=== PATIENT | male | born 1940 | race Caucasian/White ===

== ENCOUNTER → 2023-01-16 10:48 | Outpatient (CLI) | payer MEDICARE, SELFPAY ==
--- NOTE | 2023-01-16 | DI.RAD.S_ITS ---
PROCEDURE: FL BARIUM SWALLOW W SPEECH INDICATIONS: Dysphagia, unspecified COMPARISON: None. TECHNIQUE: Examination was conducted in conjunction with speech pathology per standard protocol. In the lateral projection, filming was performed of the patient swallowing. AP projection filming may also be performed with patient swallowing. COMPARISON: FINDINGS: Function: The oral preparatory phase appears normal, with proper containment. No laryngotracheal penetration or aspiration Morphology: No cricopharyngeal bar is identified. No cervical esophageal webs. No Zenker's diverticulum. No strictures. IMPRESSION: No penetration or aspiration is visualized. Please see separately dictated speech and swallow report for additional details. Dictated by: Quita Garcia M.D. on 01/17/2023 at 8:56 Approved by: Quita Garcia M.D. on 01/17/2023 at 8:57
--- NOTE | 2023-01-16 12:49 | ST.SWALLOW ---
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 Pt was accompanied by his daughter who provided background information. According to his daughter, pt has been having difficulty swallowing solids, specifically meats, during meals. He has been reported to need to throw up undigested foods when he feels foods getting stuck. Pt has a PMH of esophageal dilation (date unknown) and memory challenges , per his daughter. Pt reports his swallow problem is due to him not chewing enough'. His daughter noted that the pt eats mostly a soft diet and had self-eliminated salads, foods with skin, etc. He has no difficulty swallowing meats like meatloaf . Subjective Observations Pt entered the fluoroscopy room and was seated in the fluoroscopy chair. He was a poor historian re: PMH. He did state that he has a hiatal hernia, which his daughter denies. Instructions and procedure were described for the pt. He indicated he understood and agreed to proceed. Patient Positioning Position View Lat-A/P Imaging Lateral View Textures Administered Trials Presented Thin Liquid via Spoon (IDDSI 0 ),Thin Liquid via Cup (IDDSI 0 ),Extremely Thick Liquid via Spoon (IDDSI 4),Regular (IDDSI 7) Barium Tablet Yes The IDDSI Framework Protocol: IDDSI.1 Oral Impairment Source: The Modified Barium Swallow Impairment Profile (MBSImP??) Lip Closure No labial escape Tongue Control During Bolus Hold Cohesive bolus between tongue to palatal seal Bolus Preparation/Mastication Timely & efficient chewing & mashing Bolus Transport/Lingual Motion Brisk tongue motion Oral Residue Trace residue lining oral structures Location Tongue Initiation of Pharyngeal Swallow Bolus head in valleculae Additional Oral Impairment Observations OME and DKS were observed to be WNL. Natural dentition in good hygeine was noted. Mastication was observed to be good with a rotary chew pattern. Bolus formation, control and AP transition observed to be WNL. Pharyngeal Impairment Source: The Modified Barium Swallow Impairment Profile (MBSImP??) Soft Palate Elevation No bolus between soft palate & pharyngeal wall Laryngeal Elevation Comp.sup.move.thyroid cart.w/ comp.approx.arytenoids to epiglot petiole Anterior Hyoid Excursion Partial anterior movement Epiglottic Movement Complete inversion Laryngeal Vestibular Closure Complete; no air/contrast in laryngeal vestibule Pharyngeal Stripping Wave Present - diminished Pharyngoesophageal Segment Opening Complete distention & complete duration; no obstruction of flow Tongue Base Retraction Narrow column of contrast/air betwn tongue base & post. pharyngeal wall Pharyngeal Residue Trace residue within/on pharyngeal structures Location Diffuse (>3 areas) Additional Pharyngeal Impairment Pt's pharyngeal phase of Observations swallow appeared to be WFL for pt's age. There was mild tongue base strength observed along with partial movement of the hyoid, and diminished posterior pharyngeal wall stripping. No laryngeal penetration or aspiration were noted. Trace residual was observed throughout the pharynx. A/P View Textures Administered Trials Presented Thin Liquid via Spoon (IDDSI 0 ) The IDDSI Framework Protocol: IDDSI.1 A/P View Observations Pharyngeal Contraction Complete Esophageal Clearance Upright Position Esophageal retention w/ regtrograde flow below pharyngoesoph segment Vocal Fold Function Good Esophageal Function Slowed Clearing Additional A-P Observations Esophageal phase of pt's swallowing was screened and observed to be WFL. Slowed clearance of solids was observed with residual requiring additional water to clear into stomach. Esophageal retrograde flow below the PES was observed near the gastroesophageal juncture. An 11mm barium tablet cleared the esophagus WNL. Clinical Impressions Findings The above results indicated the pt's oral, pharyngeal and esophageal phases of swallowing to be WFL. The results were discussed with both the pt and his daughter explaining that the pt's swallow appears to to be age- related It was recommended that the pt's meats be chopped with added sauces/gravies added to assist in esophageal clearance. Increased fluid intake during meals will also assit in transition of solids to the stomach. Finally, it was recommended to the pt to chew foods well , especially meats (e.g., steak, beef, pork ). The pt and his daughter indicated they understood and agreed with the recommendations. Patient Appropriate for Therapy No Recommendations Diet Liquids Order Thin (IDDSI 0) Diet Order Easy to Chew (IDDSI 7) Comments No diet change recommended; add sauces/gravy to meats to aid digestion Aspiration Precautions Recommended Precautions Upright at 90 Degrees,Small Bites/Sips Additional Precautions Increase liquids during meal to aid in esophageal clearance Treatment Plan Recommended Referrals GI Consult Additional Recommended Referrals pt encouraged to discuss results with CP re: to recommended GI referral
== END ==
PROVIDERS: PCP Physician Assistant; Referring Provider Physician Assistant; Visit Provider Physician Assistant
DX: R13.10 Dysphagia, unspecified (principal)
CPT/HCPCS: 74230; 92611

== ENCOUNTER → 2024-05-20 10:55 | Outpatient (CLI) | payer MEDICARE, SELFPAY ==
--- NOTE | 2024-05-20 | DI.US.S_ITS ---
PROCEDURE: US CAROTID DOPPLER BI INDICATIONS: BILATERAL CAROTID ARTERY STENOSIS TECHNIQUE: Color and pulse Doppler interrogation was performed of both carotid systems, with image documentation and velocity measurements. COMPARISON: None. FINDINGS: Stenosis calculations are based on SRU (Society of Radiologists in Ultrasound) criteria. Right side: Brachial blood pressure: 158/77 mm Hg. Common carotid artery peak systolic velocity: 64 cm/sec. Internal carotid artery peak systolic velocity: 163 cm/sec. Internal carotid artery end diastolic velocity: 18 cm/sec. External carotid artery peak systolic velocity: 120 cm/sec. ICA/CCA peak systolic ratio: 2.6 . Solano scale imaging description: Mild-moderate plaque Percent internal carotid artery stenosis: 50-69% stenosis. Vertebral artery: Flow direction is antegrade. Left side: Brachial blood pressure: 143/80 mm Hg. Common carotid artery peak systolic velocity: 50 cm/sec. Internal carotid artery peak systolic velocity: 365 cm/sec. Internal carotid artery end diastolic velocity: 64 cm/sec. External carotid artery peak systolic velocity: 442 cm/sec. ICA/CCA peak systolic ratio: 7.2 . Solano scale imaging description: Severe calcified and noncalcified plaque at the origin of the internal carotid artery Percent internal carotid artery stenosis: 70% stenosis-near occlusion . Vertebral artery: Flow direction is antegrade, although the mid segment of the left vertebral artery is not well identified. IMPRESSION: 1. In the right carotid artery, there is 50-69 % stenosis based on peak systolic velocity criteria. 2. In the left carotid artery, there is 70 % stenosis-near occlusion based on peak systolic velocity criteria. 3. Antegrade vertebral arteries. Dictated by: Low Ponce M.D. on 05/20/2024 at 13:23 Approved by: Low Ponce M.D. on 05/20/2024 at 13:28
== END ==
PROVIDERS: PCP Physician Assistant; Referring Provider Internal Medicine; Visit Provider Internal Medicine
DX: I65.23 Occlusion and stenosis of bilateral carotid arteries (principal)
CPT/HCPCS: 93880